=== PATIENT | male | born 1975 | race Caucasian/White ===

== ENCOUNTER → 2021-07-06 15:51 | Outpatient (CLI) | payer OTHER, SELFPAY ==
--- NOTE | ~2021-07-06 | XR_ITS ---
XR heel RT min 2V DATE: 07/06/2021 16:21 INDICATION: Right foot pain TECHNIQUE: Axial and lateral views COMPARISON: None FINDINGS: There is plantar calcaneal enthesopathy. Minimal distal Achilles tendon calcification. No fracture or dislocation or bone destruction. IMPRESSION: Plantar calcaneal enthesopathy Reviewed, dictated and finalized at location B.
== END ==
PROVIDERS: PCP Pediatrics; Visit Provider Pediatrics
DX: M77.31 Calcaneal spur, right foot (principal)
CPT/HCPCS: 73650

== ENCOUNTER → 2021-10-24 12:29 | Outpatient (CLI) | payer SELFPAY ==
--- NOTE | ~2021-10-24 | XR_ITS ---
XR shoulder LT min 2V DATE: 10/24/2021 13:16 INDICATION: Left shoulder pain TECHNIQUE: 4 views COMPARISON: March FINDINGS: No fracture or dislocation, periosteal reaction or bone destruction or abnormal soft tissue calcification. IMPRESSION: Negative Reviewed, dictated and finalized at location A. [employer] IMPRESSION: Negative
== END ==
PROVIDERS: PCP Nurse Practitioner Family; Visit Provider Nurse Practitioner Family
DX: M25.512 Pain in left shoulder (principal)
CPT/HCPCS: 73030